=== PATIENT | male | born 1995 | race Caucasian/White ===

== ENCOUNTER 2021-04-21 09:00 | Emergency (ER) | payer SELFPAY ==
[2021-04-21 18:13] LABS: SARS-CoV-2 PCR by NAA DETECTED (NotDetected)
== END 2021-04-21 09:58 | disposition home or self-care (01) ==
LOC: ERS 09:00
DX: U07.1 COVID-19 (principal); Z87.891 Personal history of nicotine dependence
CPT/HCPCS: 99283; U0003; U0005